=== PATIENT | male | born 1995 | race Native Hawaiian/Other Pacific Islander ===

== ENCOUNTER 2020-01-01 22:37 | Emergency (ER) | payer OTHER ==
[~2020-01-01] VITALS: Ht 182.9 cm; Wt 147.4 kg
[2020-01-01 22:56] VITALS: Ht 182.9 cm; Wt 147.4 kg
[2020-01-02 01:47] VITALS: BP 176/108
== END 2020-01-02 01:54 | disposition home or self-care (01) ==
LOC: ED 22:37
DX: S06.0X0A Concussion without loss of consciousness, initial encounter (principal); W22.8XXA Striking against or struck by other objects, initial encounter; Y93.89 Activity, other specified; Y92.89 Other specified places as the place of occurrence of the external cause; Y99.8 Other external cause status